=== PATIENT | female | born 1945 | race Caucasian/White ===

== ENCOUNTER 2021-06-10 14:48 | Inpatient (IN) | payer OTHER ==
[~2021-06-10] VITALS: Ht 167.6 cm; Wt 70.1 kg
--- NOTE | ~2021-06-10 | EMS ---
[address] [address] EMS Patient Care Report Name: SPRING TABARES Room #: 214-P ADM IN M.R.#: [id number] Admission: 06/10/21 Attend Phys: Melissa Moran MD Discharge: Date of : 43 Report #: [id number] THIS REPORT FOR: //name// Report Transmitted: 06/10/2021 22:00 EMS Care Summary [facility] MED-ACT Incident [id number] @ 06/10/2021 13:55 Incident Location [address] [place] [address] Patient SPRING TABARES Female, 75 Years 1945 Patient Address [address] [place] [address] Patient History Hypertension (HTN),Hyperlipidemia,Deep Vein Thrombosis, Patient Allergies Other drug allergy, Patient Medications Warfarin, Chief Complaint " I can't breathe" Disposition Transported No Lights/[place] Dispatch Reason Chest Pain (Non-Traumatic) Transported To [facility] Narrative EMS made contact with 1 female pt sitting on the stairs in no apparent distress. Pt was A&O x4 and complained of difficulty breathing and CP. Pt appeared very anxious and was hyperventilating. EMS quickly discovered SVT and attempted to wellness health coach ot through modified Valsalva maneuver. We were unsuccessful [address] [address] EMS Patient Care Report Name: SPRING TABARES Room #: 214-P ADM IN M.R.#: [id number] Admission: 06/10/21 Attend Phys: Melissa Moran MD Discharge: Date of : 43 Report #: [id number] due to pt not being compliant with instructions. Pt reported that she was a very hard stick and usually needed the IV team, EMS attempted several times but was unsuccessful. EMS made the decision to transport quickly and not continue to fail IVs. Pt self converted to what appeared to be sinus tach. Pt reported that her discomfort was the same but visibly became much less anxious. Pt denied N/V, dizziness, visual disturbances or MANLEY. Pt voiced no further complaints while in EMS care. Initial Vitals @14:29P: 138,NM Suspected: false @14:05P: 169,NM Suspected: false @14:07P: 159,NM Suspected: false @14:35P: 130,R: 20,BP: 108/68,SpO2: 96, @14:30P: 139,R: 20,BP: 90/59,SpO2: 94, @14:23P: 143,R: 18,BP: 111/73,SpO2: 94, @14:21P: 144,R: 24,BP: 87/73,SpO2: 96, @14:04P: 183,R: 30,BP: 114/57,Pain: 6/10,GCS: 15,Temp: 97F,SpO2: 94,Revised Trauma: 11, Impression Cardiac arrhythmia/dysrhythmia Procedures @14:07 12-Lead ECG Response: UnchangedSucceeded @14:29 12-Lead ECG @14:12 IV Therapy - Saline Lock 0cc (20 ga) Site: Forearm-Left Response: UnchangedFailed @14:16 IV Therapy - Saline Lock 0cc (20 ga) Site: Forearm-Right Response: UnchangedFailed @14:13 IV Therapy - Saline Lock 0cc (20 ga) Site: Forearm-Right Response: UnchangedFailed @14:08 Response: UnchangedFailed @14:20 Surgical Mask on Patient Response: Unchanged Timeline 13:54,Call Received 13:54,Psap Call 13:55,Dispatched 13:56,En Route 13:59,On Scene 13:59,At Patient 14:04,BP: 114/57 M,PULSE: 183,RR: 30 R,SPO2: 94 Ox,ETCO2: ,BG: ,PAIN: 6,GCS: 15, 14:05,BP: / M,PULSE: 169,RR: R,SPO2: Ox,ETCO2: ,BG: ,PAIN: ,GCS: , [address] [address] EMS Patient Care Report Name: SPRING TABARES Room #: 214-P ADM IN M.R.#: [id number] Admission: 06/10/21 Attend Phys: Melissa Moran MD Discharge: Date of : 43 Report #: [id number] 14:07,12-Lead ECG,Response: UnchangedSucceeded, 14:07,BP: / M,PULSE: 159,RR: R,SPO2: Ox,ETCO2: ,BG: ,PAIN: ,GCS: , 14:08,Response: UnchangedFailed, 14:12,IV Therapy - Saline Lock 0cc 20 ga Site: Forearm-Left,Response: UnchangedFailed, 14:13,IV Therapy - Saline Lock 0cc 20 ga Site: Forearm-Right,Response: UnchangedFailed, 14:16,IV Therapy - Saline Lock 0cc 20 ga Site: Forearm-Right,Response: UnchangedFailed, 14:20,Surgical Mask on Patient,Response: Unchanged 14:21,BP: 87/73 M,PULSE: 144,RR: 24 R,SPO2: 96 Ox,ETCO2: ,BG: ,PAIN: ,GCS: , 14:23,BP: 111/73 M,PULSE: 143,RR: 18 R,SPO2: 94 Ox,ETCO2: ,BG: ,PAIN: ,GCS: , 14:29,12-Lead ECG, 14:29,BP: / M,PULSE: 138,RR: R,SPO2: Ox,ETCO2: ,BG: ,PAIN: ,GCS: , 14:29,Depart Scene 14:30,BP: 90/59 M,PULSE: 139,RR: 20 R,SPO2: 94 Ox,ETCO2: ,BG: ,PAIN: ,GCS: , 14:35,BP: 108/68 M,PULSE: 130,RR: 20 R,SPO2: 96 Ox,ETCO2: ,BG: ,PAIN: ,GCS: , 14:41,At Destination 15:00,Call Closed Disclaimer v1.1 Copyright 2021 [employer] This EMS Care Summary contains data elements from the applicable legal record (which may be displayed differently). It is designed to provide pertinent information for the following purposes: continuity of care, clinical quality, and state data reporting. The complete legal record is available to ED staff and administrators of the receiving hospital in [employer]'s Patient Tracker. All data is provided "as is."
--- NOTE | ~2021-06-10 | EMS ---
[address] [address] EMS Patient Care Report Name: SPRING TABARES Room #: 214-P ADM IN M.R.#: [id number] Admission: 06/10/21 Attend Phys: Melissa Moran MD Discharge: Date of : 43 Report #: [id number] THIS REPORT FOR: //name// Report Transmitted: 06/10/2021 20:45 EMS Care Summary [facility] MED-ACT Incident [id number] @ 06/10/2021 13:55 Incident Location [address] [place] [address] Patient SPRING TABARES Female, 75 Years 1945 Patient Address [address] [place] [address] Patient History Hypertension (HTN),Hyperlipidemia,Deep Vein Thrombosis, Patient Allergies Other drug allergy, Patient Medications Warfarin, Chief Complaint " I can't breathe" Disposition Transported No Lights/[place] Dispatch Reason Chest Pain (Non-Traumatic) Transported To [facility] Narrative EMS made contact with 1 female pt sitting on the stairs in no apparent distress. Pt was A&O x4 and complained of difficulty breathing and CP. Pt appeared very anxious and was hyperventilating. EMS quickly discovered SVT and attempted to other sports coach or instructor ot through modified Valsalva maneuver. We were unsuccessful [address] [address] EMS Patient Care Report Name: SPRING TABARES Room #: 214-P ADM IN M.R.#: [id number] Admission: 06/10/21 Attend Phys: Melissa Moran MD Discharge: Date of : 43 Report #: [id number] due to pt not being compliant with instructions. Pt reported that she was a very hard stick and usually needed the IV team, EMS attempted several times but was unsuccessful. EMS made the decision to transport quickly and not continue to fail IVs. Pt self converted to what appeared to be sinus tach. Pt reported that her discomfort was the same but visibly became much less anxious. Pt denied N/V, dizziness, visual disturbances or MANLEY. Pt voiced no further complaints while in EMS care. Initial Vitals @14:29P: 138,RI Suspected: false @14:05P: 169,RI Suspected: false @14:07P: 159,RI Suspected: false @14:35P: 130,R: 20,BP: 108/68,SpO2: 96, @14:30P: 139,R: 20,BP: 90/59,SpO2: 94, @14:23P: 143,R: 18,BP: 111/73,SpO2: 94, @14:21P: 144,R: 24,BP: 87/73,SpO2: 96, @14:04P: 183,R: 30,BP: 114/57,Pain: 6/10,GCS: 15,Temp: 97F,SpO2: 94,Revised Trauma: 11, Impression Cardiac arrhythmia/dysrhythmia Procedures @14:07 12-Lead ECG Response: UnchangedSucceeded @14:29 12-Lead ECG @14:12 IV Therapy - Saline Lock 0cc (20 ga) Site: Forearm-Left Response: UnchangedFailed @14:16 IV Therapy - Saline Lock 0cc (20 ga) Site: Forearm-Right Response: UnchangedFailed @14:13 IV Therapy - Saline Lock 0cc (20 ga) Site: Forearm-Right Response: UnchangedFailed @14:08 Response: UnchangedFailed @14:20 Surgical Mask on Patient Response: Unchanged Timeline 13:54,Call Received 13:54,Psap Call 13:55,Dispatched 13:56,En Route 13:59,On Scene 13:59,At Patient 14:04,BP: 114/57 M,PULSE: 183,RR: 30 R,SPO2: 94 Ox,ETCO2: ,BG: ,PAIN: 6,GCS: 15, 14:05,BP: / M,PULSE: 169,RR: R,SPO2: Ox,ETCO2: ,BG: ,PAIN: ,GCS: , [address] [address] EMS Patient Care Report Name: SPRING TABARES Room #: 214-P ADM IN M.R.#: [id number] Admission: 06/10/21 Attend Phys: Melissa Moran MD Discharge: Date of : 43 Report #: [id number] 14:07,12-Lead ECG,Response: UnchangedSucceeded, 14:07,BP: / M,PULSE: 159,RR: R,SPO2: Ox,ETCO2: ,BG: ,PAIN: ,GCS: , 14:08,Response: UnchangedFailed, 14:12,IV Therapy - Saline Lock 0cc 20 ga Site: Forearm-Left,Response: UnchangedFailed, 14:13,IV Therapy - Saline Lock 0cc 20 ga Site: Forearm-Right,Response: UnchangedFailed, 14:16,IV Therapy - Saline Lock 0cc 20 ga Site: Forearm-Right,Response: UnchangedFailed, 14:20,Surgical Mask on Patient,Response: Unchanged 14:21,BP: 87/73 M,PULSE: 144,RR: 24 R,SPO2: 96 Ox,ETCO2: ,BG: ,PAIN: ,GCS: , 14:23,BP: 111/73 M,PULSE: 143,RR: 18 R,SPO2: 94 Ox,ETCO2: ,BG: ,PAIN: ,GCS: , 14:29,12-Lead ECG, 14:29,BP: / M,PULSE: 138,RR: R,SPO2: Ox,ETCO2: ,BG: ,PAIN: ,GCS: , 14:29,Depart Scene 14:30,BP: 90/59 M,PULSE: 139,RR: 20 R,SPO2: 94 Ox,ETCO2: ,BG: ,PAIN: ,GCS: , 14:35,BP: 108/68 M,PULSE: 130,RR: 20 R,SPO2: 96 Ox,ETCO2: ,BG: ,PAIN: ,GCS: , 14:41,At Destination 15:00,Call Closed Disclaimer v1.1 Copyright 2021 [employer] This EMS Care Summary contains data elements from the applicable legal record (which may be displayed differently). It is designed to provide pertinent information for the following purposes: continuity of care, clinical quality, and state data reporting. The complete legal record is available to ED staff and administrators of the receiving hospital in [employer]'s Patient Tracker. All data is provided "as is."
[~2021-06-10 14:48] MED LIST: CATAPRES; COLACE100 MG PO; DIAZEPAM 5 MG5 MG PO; OXYCODONE HCL30 MG PO; OXYCONTIN40 MG PO; PHENERGAN25 MG RE; PRILOSEC 20 MG20 MG PO; ZANAFLEX4 M1 PO; ZOFRAN ODT4 MG PO; ZOLOFT25 MG PO
[2021-06-10 14:58] VITALS: BP 126/51
[2021-06-10 15:58] LABS: ABSOLUTE NEUTROPHILS 13.2 thou/uL (1.4-8.2); BASOPHILS 0.8 % (0.0-2.0); EOSINOPHILS 0.8 % (0.0-3.0); HEMATOCRIT 38.4 % (37.0-47.0); HEMOGLOBIN 12.2 gm/dL (12.0-15.0); LYMPHOCYTES 2.8 % (24.0-44.0); MCH 33.9 pg (26.0-34.0); MCHC 31.8 g/dL (28.0-37.0); MCV 106.8 fL (80.0-100.0); MONOCYTES 8.2 % (1.0-8.0); PLATELET COUNT 98 thou/uL (150-400); POLYS 87.4 % (36.0-66.0); RDW 13.5 % (10.5-14.5); WBC 15.1 thou/uL (4.0-11.0)
--- NOTE | 2021-06-10 15:59 | EKG ---
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 : 1945 Requested By: Iraj Lemons Order Number: [id number] MD: Luis Mack Measurements Intervals Jena Rate: 134 P: 68 SD: 141 QRS: 13 QRSD: 85 T: -40 QT: 284 QTc: 424 Interpretive Statements Sinus tachycardia Borderline T abnormalities, inferior leads Compared to ECG 03/31/2009 12:02:12 T-wave abnormality now present Sinus rhythm no longer present Electronically Signed On 06-10-2021 15:59:14 AUTOMOTIVE TIRE TESTER by Luis Mack [email or web address] <ELECTRONICALLY SIGNED> By: Luis Mack MD, [facility] 06/10/21 1559 1458 1458 Luis Mack MD, FACC /EPI
[2021-06-10 16:21] LABS: CALCIUM 8.4 mg/dL (8.5-10.1); CREATININE 0.9 mg/dL (0.6-1.0); POTASSIUM 3.7 mmol/L (3.5-5.1)
[2021-06-10 16:31] LABS: ALBUMIN 2.7 g/dL (3.4-5.0); TOTAL BILIRUBIN 0.6 mg/dL (0.2-1.0); TOTAL PROTEIN 5.8 g/dL (6.4-8.2)
[2021-06-10 16:45] LABS: DIRECT BILIRUBIN 0.2 mg/dL (<0.1-0.2); PHOSPHORUS 2.4 mg/dL (2.5-4.9)
[2021-06-10 16:50] LABS: INR 1.09; PROTIME 11.8 Seconds (10.5-12.1)
--- NOTE | 2021-06-10 19:08 | NUR ---
PT REPORT GIVEN TO JANA ROBERTS
--- NOTE | 2021-06-10 20:00 | NUR ---
PT REFUSED VQ SCAN. PT EDUCATED ABOUT THE IMPORTANCE OF THIS SCAN BY THE ERP AND THIS NURSE. PT ADAMANTLY REFUSED VQ SCAN.
[2021-06-10 21:15] VITALS: BP 110/57
[2021-06-10 21:29] VITALS: BP 115/72
[2021-06-10 22:02] VITALS: BP 103/80
[2021-06-10] MEDS ORDERED: WARFARIN SODIU2.5 MG PO (23:47)
[2021-06-11 03:45] VITALS: BP 106/56
--- NOTE | 2021-06-11 05:30 | NUR ---
PT ADMITTED TO ROOM 214, ORIENTED TO ROOM AND UNIT, PT VERY ANXIOUS AND TEARFUL, ANXIETY AND PAIN MEDS REQUESTED AND GIVEN CHARTED, VSS HR =ST LOW TEENS, O2 3L/NC WITH INSPIRATORY AND EXPIRATORY WHEEZING, ENCOURAGED TO C&DB, C/O PAIN WITH BREATHING AND DEEP BREATHS, VOIDING PER BEDPAIN, ECHO AND LABS PLANNED FOR THIS AM, STATED SHE WAS JUST DISCHARGED FROM [facility] AFTER BEING SCOPED AND POLYPS BIOPSIED, WILL CON'T TOO MONITOR PER PPOC
[2021-06-11 07:31] LABS: HEMATOCRIT 32.5 % (37.0-47.0); HEMOGLOBIN 10.6 gm/dL (12.0-15.0); MCH 34.3 pg (26.0-34.0); MCHC 32.5 g/dL (28.0-37.0); MCV 105.6 fL (80.0-100.0); RBC 3.08 mil/uL (4.20-5.00); RDW 13.2 % (10.5-14.5)
[2021-06-11 07:44] LABS: CALCIUM 8.1 mg/dL (8.5-10.1); CREATININE 0.7 mg/dL (0.6-1.0); POTASSIUM 3.3 mmol/L (3.5-5.1)
[2021-06-11 07:49] LABS: CHOLESTEROL 129 mg/dL (<200); HDL CHOLESTEROL 31 mg/dL (>40); LDL CHOLESTEROL 81 mg/dL (<100); TC:HDL 4.2 Ratio (Not establshd); TRIGLYCERIDE 89 mg/dL (<150); VLDL 18 mg/dL (<40)
[2021-06-11 09:39] VITALS: BP 93/63
--- NOTE | 2021-06-11 10:26 | 2DMMODE ---
[facility] [place] [address] 2 D/M-MODE ECHOCARDIOGRAM Name: SPRING TABARES Room #: 214-P ADM IN M.R.#: [id number] Admission: 06/10/21 Attend Phys: Melissa Moran MD Discharge: Date of : 43 Report #: [id number] THIS REPORT FOR: cc: Gurjit Talamantes MD, M. Kathryn MD Lammoglia, Francisco J. MD ~ APPROVED REPORT Study performed: 06/11/2021 09:39:02 EXAM: Comprehensive 2D, Doppler, and color-flow Echocardiogram Patient Location: Bedside Room #: 214 Status: routine BSA: 1.76 HR: 113 bpm BP: 106/56 mmHg Rhythm: Tachycardia Other Information Study Quality: Adequate Indications Dyspnea Chest Pain SVT 2D Dimensions RVDd: 37.22 mm IVSd: 9.24 (7-11mm) LVOT Diam: 20.48 (18-24mm) LVDd: 41.81 mm PWd: 9.42 (7-11mm) Ascending Ao: 33.38 (22-36mm) LVDs: 29.25 (25-40mm) Left Atrium: 31.71 (27-40mm) Aortic Root: 31.78 mm Volumes Left Atrial Volume (Systole) Single Plane 4CH: 31.60 mL Single Plane 2CH: 49.00 mL LA ESV Index: 25.00 mL/m2 Aortic Valve AoV Peak Steve.: 1.45 m/s AO Peak Gr.: 8.36 mmHg LVOT Max P.32 mmHg [facility] [address] [place] [address] 2 D/M-MODE ECHOCARDIOGRAM Name: SPRING TABARES Room #: 214-P ADM IN M.R.#: [id number] Admission: 06/10/21 Attend Phys: Rosalind Mejias Discharge: Date of : 43 Report #: [id number] LVOT Max V: 1.04 m/s MATT Vmax: 2.37 cm2 Mitral Valve E/A Ratio: 0.5 MV Decel. Time: 216.06 ms MV E Max Steve.: 0.58 m/s MV A Steve.: 1.08 m/s MV PHT: 62.66 ms Pulmonary Valve PV Peak Steve.: 0.56 m/s PV Peak Gr.: 1.25 mmHg Tricuspid Valve TR Peak Steve.: 3.02 m/s RAP Estimate: 10.00 mmHg TR Peak Gr.: 37.00 mmHg PA Pressure: 47.00 mmHg Left Ventricle The left ventricle is normal size. There is normal LV segmental wall motion. There is normal left ventricular wall thickness. Left ventricular systolic function is normal. LVEF is 60%. Right Ventricle The right ventricle is normal size. Atria The left atrium size is normal. The right atrium size is normal. Aortic Valve Aortic valve leaflets are mildly thickened. No aortic regurgitation is present. There is no aortic valvular stenosis. Mitral Valve The mitral valve is normal in structure. There is mitral annular calcification. There is no mitral valve regurgitation noted. No evidence of mitral valve stenosis. Tricuspid Valve The tricuspid valve is normal in structure. Mild to moderate tricuspid regurgitation. Estimated PAP is 37mmHg. Pulmonic Valve The pulmonary valve is normal in structure. Trace pulmonic regurgitation. [facility] [employer] [place] [address] 2 D/M-MODE ECHOCARDIOGRAM Name: SPRING TABARES Room #: 214-P ADM IN M.R.#: [id number] Admission: 06/10/21 Attend Phys: Rosalind Mejias Discharge: Date of : 43 Report #: [id number] Great Vessels The aortic root is normal in size. The ascending aorta is normal in size. IVC is dilated and collapses <50% with inspiration. Pericardium There is no pericardial effusion. <Conclusion> The left ventricle is normal size. There is normal left ventricular wall thickness. LVEF is 60%. The right ventricle is normal size. The left atrium size is normal. Aortic valve leaflets are mildly thickened. The mitral valve is normal in structure. There is mitral annular calcification. The tricuspid valve is normal in structure. Mild to moderate tricuspid regurgitation. Estimated PAP is 37mmHg. The pulmonary valve is normal in structure. The aortic root is normal in size. There is no pericardial effusion. <ELECTRONICALLY SIGNED> By: Phi Toney MD 06/11/21 1026 1026 1026 Phi Toney MD /INF
[2021-06-11 13:14] VITALS: BP 92/64
--- NOTE | 2021-06-11 15:21 | NUR ---
PATIENT ADMITTED FOR ACUTE HYPOXIC RESPIRATORY FAILURE, CP, PNA. CHART REVIEWED AND DISCUSSED WITH CARE TEAM. CM MET WITH PT THIS DAY. CM ROLE INTRODUCED. PT REPORTS SHE LIVES AT HOME WITH HER DAUGHTER AND HER FAMILY. SHE DOES USE A WALKER OR W/C AND IS NORMALLY INDEPENDENT. SHE REPORTS SHE DOES NOT USE HOME OXYGEN. SHE REPORTS SHE WAS AT [facility] AND DISCHARGED 3 DAYS AGO FOR N/V/D. SHE REPORTS SHE DID NOT DC WITH HH NOR HAVE IN THE PAST OR HAD SNF IN THE PAST. SHE REPORTS HER GOAL IS TO DC HOME BACK TO FAMILY. PT REPORTS SHE DOES NOT FEEL GOOD SO ASSESSMENT STOPPED AT THIS TIME. IT IS NOT ANTICIPATED PT WILL DC THIS WEEKEND. CM WILL CONTINUE TO FOLLOW.
[2021-06-11 16:00] VITALS: BP 110/70
[2021-06-11 19:41] VITALS: BP 105/56
[2021-06-11 23:34] VITALS: BP 110/64
--- NOTE | 2021-06-12 01:56 | NUR ---
ASSESSMENTS CHARTED, MEDS CHARTED GIVEN. DR KENNEDY IN ORDER FOR CTA OF CHEST FOR PROTOCOL, BUT PATIENT IS ALLERGIC TO CONTRAST. PATIENT HAD REFUSED VQ SCAN DURING THE DAY. PATIENT CONTINUES ON 3 LITERS NC, USING BEDPAN TO KEEP HR FROM ESCALATING WITH ACTIVITY. CONTINUE CARE.
[2021-06-12 03:24] LABS: HEMATOCRIT 31.5 % (37.0-47.0); HEMOGLOBIN 10.6 gm/dL (12.0-15.0); MCHC 33.5 g/dL (28.0-37.0); MCV 104.6 fL (80.0-100.0); RBC 3.02 mil/uL (4.20-5.00); RDW 13.2 % (10.5-14.5)
[2021-06-12 03:31] VITALS: BP 95/61
[2021-06-12 03:34] LABS: CALCIUM 7.8 mg/dL (8.5-10.1); CREATININE 0.7 mg/dL (0.6-1.0); POTASSIUM 3.2 mmol/L (3.5-5.1)
[2021-06-12 07:42] VITALS: BP 114/67
[2021-06-12 11:21] VITALS: BP 116/60
[2021-06-12 13:41] LABS: URINE BILIRUBIN NEGATIVE (Negative); URINE BLOOD NEGATIVE (Negative); URINE CLARITY CLEAR; URINE COLOR YELLOW; URINE GLUCOSE-RANDOM* NEGATIVE (Negative); URINE KETONES TRACE (Negative); URINE LEUKOCYTES-REFLEX TRACE (Negative); URINE NITRITE-REFLEX NEGATIVE (Negative); URINE PROTEIN (DIPSTICK) TRACE (Negative); URINE SPECIFIC GRAVITY 1.015 (1.005-1.035)
[2021-06-12 15:25] VITALS: BP 93/47
[2021-06-12 15:28] VITALS: BP 89/57
[2021-06-12 20:21] VITALS: BP 97/55
[2021-06-12 21:07] LABS: ABSOLUTE NEUTROPHILS 7.4 thou/uL (1.4-8.2); BASOPHILS 0.6 % (0.0-2.0); EOSINOPHILS 1.2 % (0.0-3.0); HEMATOCRIT 28.9 % (37.0-47.0); HEMOGLOBIN 9.6 gm/dL (12.0-15.0); LYMPHOCYTES 8.3 % (24.0-44.0); MCH 34.9 pg (26.0-34.0); MCHC 33.2 g/dL (28.0-37.0); MCV 105.2 fL (80.0-100.0); MONOCYTES 11.7 % (1.0-8.0); PLATELET COUNT 119 thou/uL (150-400); POLYS 78.2 % (36.0-66.0); RBC 2.75 mil/uL (4.20-5.00); RDW 13.3 % (10.5-14.5); WBC 9.4 thou/uL (4.0-11.0)
--- NOTE | 2021-06-13 01:41 | NUR ---
ASSESSMENTS CHARTED, MEDS CHARTED GIVEN. PATIENT RESTING IN BED DURING SHIFT. STILL C/O GENERALIZED PAIN 6-10 DURING SHIFT. HAS SCHEDULE PAIN MEDS. MID SHIFT LABS CAME BACK AND SHE WAS LOW ON POTASSIUM, REPLACED PER PROTOCOL. PATIENT REFUSES TO USE PUREWICK SYSTEM BUT RATHER BED GUTIERREZ IS PREFERED. PATIENT HAS A STRESS TEST ON MONDAY AND VQ SCAN PART OF TREATMENT. CONTINUE CARE.
[2021-06-13 03:04] LABS: HEMATOCRIT 30.7 % (37.0-47.0); MCH 34.3 pg (26.0-34.0); MCHC 32.4 g/dL (28.0-37.0); MCV 105.9 fL (80.0-100.0); RBC 2.9 mil/uL (4.20-5.00); RDW 13.2 % (10.5-14.5); WBC 9.2 thou/uL (4.0-11.0)
[2021-06-13 03:33] LABS: CALCIUM 7.7 mg/dL (8.5-10.1); CREATININE 0.7 mg/dL (0.6-1.0); POTASSIUM 3.5 mmol/L (3.5-5.1)
[2021-06-13 04:45] VITALS: BP 121/68
[2021-06-13 07:46] VITALS: BP 105/59
[2021-06-13 11:41] VITALS: BP 109/61
[2021-06-13 15:31] VITALS: BP 113/47
--- NOTE | 2021-06-13 16:53 | NUR ---
ASSUMED CARE OF PATIENT AT 0700. PATIENT A&O STILL REQUIRING 5LNC. REMAINS SLIGHTLY TACHY ON MONITOR IN THE LOW 1 TEENS. STILL USING BEDPAN TO AVOID GETTING UP FROM BED. WILL HAVE A STRESS TEST AND VQ SCAN TOMORROW. NPO AT MIDNIGHT.
[2021-06-14 04:45] VITALS: BP 94/60
[2021-06-14 04:50] LABS: CALCIUM 8.1 mg/dL (8.5-10.1); CREATININE 0.7 mg/dL (0.6-1.0); HEMATOCRIT 29.4 % (37.0-47.0); HEMOGLOBIN 9.7 gm/dL (12.0-15.0); MCH 35.2 pg (26.0-34.0); MCV 106.8 fL (80.0-100.0); POTASSIUM 3.2 mmol/L (3.5-5.1); RBC 2.75 mil/uL (4.20-5.00); RDW 13.7 % (10.5-14.5); WBC 6.4 thou/uL (4.0-11.0)
[2021-06-14 07:55] VITALS: BP 105/57
--- NOTE | 2021-06-14 08:07 | NUR ---
ASSESSMENTS CHARTED, MEDS CHARTED GIVEN. PATIENT USED THE BSC INSTEAD OF THE BEDPAN DURING THE SHIFT. HAD 2 BOWEL MOVEMENTS. PATIENT HAS BEEN NPO SINCE MIDNIGHT FOR A NUCLEAR MED STRESS TEST IN THE AM. CONTINUE CARES.
[2021-06-14 11:13] VITALS: BP 101/64
[2021-06-14 14:53] VITALS: BP 99/59
--- NOTE | 2021-06-14 15:37 | NUR ---
ASSUMED CARE OF PATIENT AT 0700. PATIENT'S IV INFILTRATED FIRST THING THIS MORNING AND IV THERAPY PLACED NEW IV AND ANTIBOTIC RESTARTED. PATIENT ALSO DOWN FOR VQ SCAN TODAY. RESULTS ARE VIEWABLE. PATIENT'S K+ ONLY 3.2, REPLACED WITH 40MEQ PO AND REDRAW SCHEDUELED AT 1715. PATIENT PROGRESSING TOWARD POC.
--- NOTE | 2021-06-14 15:42 | NUR ---
CM REVIEWED PT CHART. PT REMAINS ON 5L/NC AND REMAINS ON IV ABTS. PT HAS NOT YET PARTICIPATED WITH PT/OT AT THIS TIME. CM WILL FOLLOW THERAPY RECOMMENDATIONS AND CONTINUE WITH ASSESSING DC PLANNING.
[2021-06-14 19:38] VITALS: BP 93/62
[2021-06-15 01:00] VITALS: BP 100/64
[2021-06-15 03:53] VITALS: BP 98/69
--- NOTE | 2021-06-15 04:06 | NUR ---
RECEIVED PATIENT AT 1900H.PATIENT IS ALERT AND ORIENTED X4..ASSESSMENT DONE CHARTED.MEDS GIVEN PER JUL.KEPT NPO FROM MIDNIGHT FOR STRESS TEST THIS MORNING.ALL NEEDS ATTENDED.TO CONTINOUSLY MONITOR.
[2021-06-15 09:35] VITALS: BP 103/67
--- NOTE | 2021-06-15 12:26 | NUR ---
CM MET WITH PT THIS DAY FOR CONTINUED DC PLANNING. PT REPORTS SHE WILL NOT NEED HH SERVICES ONCE MEDICALLY STABLE TO DC. ALTHOUGH [facility] CAN ACCEPT. PT NODDING OFF DURING OUR CONVERSATION. RECEIVED OK FROM PT TO CALL PTS DAUGHTER GORDY. PT LIVES WITH DAUGHTER GORDY AND HER FAMILY. CM CALLED AND UNABLE TO REACH. NO OPTION TO LM. PT MAY ALSO BENEFIT FROM REHAB FOLLOWING DC PER PT RECOMM. STILL AWAITING OT RECOMM. PT DOWN TO 4L/NC FROM 5L/NC. MAY NEED EXER OX ONCE MEDICALLY STABLET TO DC IF DC HOME WITH HH. CM WILL CONTINUE TO FOLLOW FOR DC PLANNING.
[2021-06-15 17:00] VITALS: BP 111/67
--- NOTE | 2021-06-15 17:32 | NUR ---
ASSUMED PT CARE THIS MORNING. PT WAS DROWSY THROUGHOUT THE SHIFT. COMMUNICATED NEEDS TO STAFF APPROPRIATELY. PT DID NOT AMBULATE THIS SHIFT. PT COMPLAINED OF BACK PAIN THAT WAS WELL MANAGED WITH PO PAIN MEDICATION. NO ISSUES VOIDING. STRESS TEST WAS RESCHEDULED FOR TOMORROW MORNING. PT WILL BE NPO AT MIDNIGHT.
[2021-06-15 19:29] VITALS: BP 96/53
[2021-06-15 23:51] VITALS: BP 115/76
--- NOTE | 2021-06-16 04:23 | NUR ---
assumed pt care at 1900, alert and oriented, drowsy beginning of shift, denied pain or soa, up to the bs commodex1 assist, sr on tele, titrated down to 3l of o2 via nasal canula, o2sats stable, remains on iv abx for pna, no acute distress noted this shift, remains weak, will continue to monitor
[2021-06-16 04:25] VITALS: BP 100/52
[2021-06-16 08:00] VITALS: BP 110/67
[2021-06-16 12:00] VITALS: BP 103/61
[2021-06-16] MEDS ORDERED: BAYER CHEWABLE81 MG PO (13:04)
[2021-06-16] MEDS ORDERED: PROTONIX 20 MG20 MG PO (13:04)
[2021-06-16] MEDS ORDERED: METOPROLOL TART25 MG PO (13:04)
[2021-06-16] MEDS ORDERED: TRADJENTA5 MG PO (13:04)
[2021-06-16] MEDS ORDERED: CYMBALTA60 MG PO (13:04)
[2021-06-16] MEDS ORDERED: ELIQUIS5 MG PO (13:44)
[2021-06-16 14:05] LABS: HEMATOCRIT 31.7 % (37.0-47.0); HEMOGLOBIN 10.1 gm/dL (12.0-15.0); MCH 34.1 pg (26.0-34.0); MCHC 31.7 g/dL (28.0-37.0); MCV 107.7 fL (80.0-100.0); RBC 2.95 mil/uL (4.20-5.00); RDW 14.1 % (10.5-14.5)
[2021-06-16 14:15] LABS: CALCIUM 8.8 mg/dL (8.5-10.1); CREATININE 0.6 mg/dL (0.6-1.0); POTASSIUM 3.1 mmol/L (3.5-5.1)
--- NOTE | 2021-06-16 14:21 | NUR ---
I have reviewed the documentation by CLAUDINE GUERRERO from 06/14/21 to 06/14/21 and I concur with it. KRIS BAUM, PT, DPT
--- NOTE | 2021-06-16 15:11 | NUR ---
TRYO reviewed chart and spoke with attending physician. Pt is progressing towards goals for discharge. Pt had stress test today. Discharge home with HH and Home O2 is planned for tomorrow. [facility] can accept pt on service. TROY attempted to meet with pt earlier today. Pt have chest xray. TROY placed call to pt's dtr, Radha, to discuss discharge plan. ([phone] does not have a voice mail box option. [phone] has a voice mailbox that is full). TROY placed call to pt's room. Line was busy. SW to follow up with pt/family to discuss discharge plan. TROY is following to assist as needed with discharge planning.
[2021-06-16] MEDS ORDERED: OXYGEN MISCELL (15:13)
--- NOTE | 2021-06-16 17:01 | NUR ---
ASSUMED PT CARE THIS MORNING. PT COMPLAINS OF CHRONIC BACK PAIN THAT IS WELL MANAGED WITH PO PAIN MEDICATION. PT IS A&OX4 AND COMMUNICATING NEEDS TO STAFF APPROPRIATELY. PT VOIDED AT THE BEDSIDE COMMODE WITH STANDBY ASSISTANCE FROM STAFF. PT WAS NPO THIS MORNING FOR A STRESS TEST BUT CONSUMED DINNER AND FLUIDS AFTERWARDS.
[2021-06-16 19:49] VITALS: BP 111/54
[2021-06-17 05:12] VITALS: BP 108/67
[2021-06-17 09:27] VITALS: BP 125/79
[2021-06-17 11:57] VITALS: BP 99/51
[2021-06-17 13:58] VITALS: BP 99/51
[2021-06-17] MEDS ORDERED: AUGMENTIN 875-1 EACH PO (14:24)
[2021-06-17] MEDS ORDERED: KLOR-CON M2020 MEQ PO (14:24)
[2021-06-17] MEDS ORDERED: VENTOLIN HFA 1818 GM INH (14:24)
[2021-06-17] MEDS ORDERED: MAGNESIUM OXID200 MG PO (14:24)
[2021-06-17] MEDS ORDERED: PREDNISONE 10 M10 M1 PO (14:24)
[2021-06-17 15:11] VITALS: BP 99/51
--- NOTE | 2021-06-17 15:20 | NUR ---
CM RECEIVED NOTIFICATION PT IS MEDICALLY STABLE TO DC HOME. 2 CALLS PLACED TO DAUGHTER CARMINA AT [phone] AND [phone] WITH NO ANSWER OR OPTION TO LEAVE A MESSAGE. CM MET WITH PT TO DISCUSS DC HOME, HH, AND OXYGEN. ASKED PT TO PLACE CALL TO DAUGHTER TO INSTRUCT DC HOME. PTS CELL PHONE NOT CHARGED. CM PLACED HER PHONE ON [employer] PROFESSIONAL. CHARGE NURSE ON UNIT INFORMED PTS RETAIL [employer] PROFESSIONAL ON PHONE. ONCE ABLE TO USE PLEASE REACH OUT TO DAUGHTER TO NOTIFY OF PT DC HOME. VOICED UNDERSTANDING. HH PROVIDER [facility]. OXYGEN PROVIDER [facility]. ALL NOTED ON DISCHARGE PAPERWORK. PT/FAMILY TO CALL [facility] ON WAY HOME FROM HOSPITAL SO OXYGEN CAN BE DELIVERED. NO FURTHER CM INTERVENTIONS INDICATED AT THIS TIME.
[2021-06-17 16:00] VITALS: BP 99/58
--- NOTE | 2021-06-17 16:46 | NUR ---
CM RECEIVED CALL FROM NURSING STAFF INDICATING SHE JUST SPOKE TO PTS DAUGHTER. SHE INSTRUCTED PTS DAUGHTER CM WAS TRYING TO GET A HOLD OF HER. CM CALL AND SPOKE TO PTS DAUGHTER GORDY. GORDY INFORMED SHE WAS SICK RECOVERING FROM COVID. SHE WILL ISOLATE AT HOME AWAY FROM PT. [facility]KKY WILL PICK PT UP THIS EVENING AT 7P. THIS CM GAVE GORDY OPERATING INSTRUCTIONS FOR OXYGEN WELL CALLING ONCE PTS ARRIVE HOME FOR OXYGEN DELIVERY. SHE VOICED UNDERSTANDING. SHE ALSO APOLIGIZED TO CM FOR NOT BEING REACHABLE. SHE INDICATED SHE APPRECIATED EVERYONE AND WHAT WE ARE DOING. SHE DID VOICE PT DEPENDS ON ALCOHOL AND INQUIRED ABOUT HER MEDICATIONS WITH ALCOHOL. SHE INDICATED SHE KNOWS ALL MEDS INTERACT AND SHE WOULD CALL THE NURSE FOR CLARIFICATION. DC ORDERS AND SUMMARY FAXED TO [facility]. NO FURTHER CM INTERVENTIONS AT THIS TIME.
== END 2021-06-17 22:29 | disposition home health service (06) | DRG 177 ==
LOC: ER 14:48 → EROBS 20:04 → 2N 20:04
PROVIDERS: Emergency Medicine; Internal Medicine; Nurse Practitioner Family; ADMIT Hospitalist; ATTEND Hospitalist
DX: J98.51 Mediastinitis (principal); J18.9 Pneumonia, unspecified organism; J96.01 Acute respiratory failure with hypoxia; I47.1 Supraventricular tachycardia; D68.9 Coagulation defect, unspecified; D68.59 Other primary thrombophilia; G89.29 Other chronic pain; R07.89 Other chest pain; M54.9 Dorsalgia, unspecified; E78.5 Hyperlipidemia, unspecified; E87.6 Hypokalemia; R41.0 Disorientation, unspecified; E55.9 Vitamin D deficiency, unspecified; E89.0 Postprocedural hypothyroidism; E11.9 Type 2 diabetes mellitus without complications; R53.81 Other malaise; Y95 Nosocomial condition; I27.20 Pulmonary hypertension, unspecified; R79.89 Other specified abnormal findings of blood chemistry; I07.1 Rheumatic tricuspid insufficiency; K21.9 Gastro-esophageal reflux disease without esophagitis; F41.9 Anxiety disorder, unspecified; F32.A Depression, unspecified; E78.00 Pure hypercholesterolemia, unspecified; R77.8 Other specified abnormalities of plasma proteins; Z20.822 Contact with and (suspected) exposure to COVID-19; Z90.49 Acquired absence of other specified parts of digestive tract; Z90.710 Acquired absence of both cervix and uterus; Z98.891 History of uterine scar from previous surgery; Z79.899 Other long term (current) drug therapy; Z88.8 Allergy status to other drugs, medicaments and biological substances; Z88.1 Allergy status to other antibiotic agents; Z91.041 Radiographic dye allergy status; Z86.718 Personal history of other venous thrombosis and embolism; Z79.01 Long term (current) use of anticoagulants
CPT/HCPCS: 10081

== ENCOUNTER → 2021-07-12 | Outpatient (CLI) | payer OTHER ==
[~2021-07-12] MED LIST changes: +AUGMENTIN 875-1 EACH PO; +BAYER CHEWABLE81 MG PO; +CYMBALTA60 MG PO; +ELIQUIS5 MG PO; +KLOR-CON M2020 MEQ PO; +MAGNESIUM OXID200 MG PO; +METOPROLOL TART25 MG PO; +OXYGEN MISCELL; +PREDNISONE 10 M10 M1 PO; +PROTONIX 20 MG20 MG PO; +TRADJENTA5 MG PO; +VENTOLIN HFA 1818 GM INH; +WARFARIN SODIU2.5 MG PO
== END ==
LOC: SJCVC 12:20
PROVIDERS: ATTEND Internal Medicine
DX: I47.1 Supraventricular tachycardia (principal); Z79.82 Long term (current) use of aspirin; Z79.899 Other long term (current) drug therapy; Z88.8 Allergy status to other drugs, medicaments and biological substances